=== PATIENT | female | born 1980 | race Caucasian/White ===

== ENCOUNTER 2020-08-26 11:43 | Inpatient (IN) | payer MEDICAID, OTHER ==
[~2020-08-26] VITALS: Ht 160 cm; Wt 63.6 kg
[2020-08-26] MEDS ORDERED: KETOROLAC 30 MG/1 ML IV ONE (12:30)
[2020-08-26] MEDS ORDERED: SODIUM CHLORIDE 0.9% 1,000ML IVBOLUS ONE (12:30)
[2020-08-26] MEDS ORDERED: KETOROLAC 30 MG/1 ML ONE (12:40)
--- NOTE | 2020-08-26 12:51 | NUR ---
pt in bed no distress, vss, ns running, admin pain meds
[2020-08-26 12:58] LABS: BASOPHILS % (AUTO) 1 % (0-1); EOSINOPHILS % (AUTO) 0 % (1-7); LYMPHOCYTES % (AUTO) 20 % (22-44); MEAN CORPUSCULAR HEMOGLOBIN 28.9 pg (27.0-34.8); MEAN CORPUSCULAR HGB CONC 34.3 g/dL (32.4-35.8); MEAN PLATELET VOLUME 7.2 fL (7.4-10.4); MONOCYTES % (AUTO) 9 % (2-9); NEUTROPHILS % (AUTO) 70 % (42-75); PLATELET COUNT 317 x10^3/uL (130-400); RED BLOOD COUNT 4.64 x10^6/uL (3.82-5.3); RED CELL DISTRIBUTION WIDTH 12.7 % (9.6-15.2)
[2020-08-26 13:00] LABS: MD NO
[2020-08-26 13:02] LABS: ALANINE AMINOTRANSFERASE 32 U/L (12-78); ALBUMIN 3.8 g/dL (3.4-5.0); ANION GAP 7 mmol/L (5-15); CALCIUM 9.1 mg/dL (8.5-10.1); CHLORIDE 106 mmol/L (98-107)
[2020-08-26 13:05] LABS: ALKALINE PHOSPHATASE 71 U/L (45-117); BILIRUBIN,TOTAL 0.8 mg/dL (0.2-1.0); TOTAL PROTEIN 7.7 g/dL (6.4-8.2)
--- NOTE | 2020-08-26 13:48 | NUR ---
PT IN BED, WAS RESTING, STATES STILL IN PAIN, VSS
[2020-08-26] MEDS ORDERED: AMPICILLIN/SULBACTAM 3 GM in SODIUM CHLORIDE 0.9% 100 ML IV ONE (14:30)
[2020-08-26] MEDS ORDERED: VANCOMYCIN PER PHARMACY MC PRN ×2 (14:30→15:30)
[2020-08-26] MEDS ORDERED: SERT50TA PO (14:57)
[2020-08-26] MEDS ORDERED: VANCOMYCIN 1,600 MG in SODIUM CHLORIDE 0.9% 250 ML IV ONE (15:00)
--- NOTE | 2020-08-26 15:00 | NUR ---
pt sitting in bed, bf at bedside
--- NOTE | 2020-08-26 15:06 | NUR ---
ivab started, SPOKE WITH PROVIDER ABOUT BLOOD CULTURES, SIRS CRITERIA NOT MET NO CULTURES INDACATED
[2020-08-26] MEDS ORDERED: ENOXAPARIN 40 MG/0.4 ML SQ SCH (15:30)
[2020-08-26] MEDS ORDERED: POLYETHYLENE GLYCOL 17 GM PACKET PO PRN (15:30)
[2020-08-26] MEDS ORDERED: ACETAMINOPHEN 325 MG TABLET PO PRN (15:30)
[2020-08-26] MEDS ORDERED: SENNA/DOCUSATE TABLET PO PRN (15:30)
[2020-08-26] MEDS ORDERED: ONDANSETRON 2MG/ML, 2ML IVPush PRN (15:30)
[2020-08-26] MEDS ORDERED: ONDANSETRON ODT 4 MG PO PRN (15:30)
[2020-08-26] MEDS ORDERED: IBUPROFEN 600 MG TABLET PO PRN (15:30)
[2020-08-26 15:52] LABS: HCT (SEDRATE) 37.5 % (34.6-47.8)
[2020-08-26] MEDS ORDERED: PHARMACOKINETIC MONITORING MC PRN (16:00)
[2020-08-26] MEDS ORDERED: PHARMACOKINETIC CONSULTATION MC ONE (16:00)
--- NOTE | 2020-08-26 16:10 | NUR ---
BREAK RN: PT UP TO ROOM, REPORT WAS GIVEN BY CARIDAD MAE
[2020-08-26 16:50] VITALS: BP 109/71
[2020-08-26] MEDS ORDERED: AMPICILLIN/SULBACTAM 3 GM in SODIUM CHLORIDE 0.9% 100 ML IV SCH (20:30)
[2020-08-26] MEDS ORDERED: SERTRALINE 50MG TABLET PO SCH (21:00)
[2020-08-27] MEDS ORDERED: VANCOMYCIN 1,300 MG in SODIUM CHLORIDE 0.9% 250 ML IV SCH (05:00)
== END 2020-08-26 19:00 | disposition left against medical advice (07) | DRG 603 ==
LOC: ED 13:11 → EDIP 15:14 → 3N 16:10
PROVIDERS: ADMIT Family Medicine; ATTEND Family Medicine
DX: L03.113 Cellulitis of right upper limb (principal); L02.511 Cutaneous abscess of right hand; F17.200 Nicotine dependence, unspecified, uncomplicated; R60.9 Edema, unspecified; F41.1 Generalized anxiety disorder; V89.2XXA Person injured in unspecified motor-vehicle accident, traffic, initial encounter
CPT/HCPCS: 36415; 80053; 83036; 85025; 85651; 86140; 87040; 87070; 87077; 87186; 87205; 87806; 93005; 96374; 96375; 99285; G0378; J0295; J1885; G0475; J7030

== ENCOUNTER 2020-08-28 15:09 | Inpatient (IN) | payer MEDICAID ==
[~2020-08-28] VITALS: Ht 160 cm; Wt 68.5 kg
[~2020-08-28 15:09] MED LIST: SERT50TA PO
[2020-08-28] MEDS ORDERED: KETOROLAC 30 MG/1 ML ONE (15:51)
[2020-08-28] MEDS ORDERED: KETOROLAC 30 MG/1 ML IVPush ONE (16:00)
[2020-08-28] MEDS ORDERED: AMPICILLIN/SULBACTAM 3 GM in SODIUM CHLORIDE 0.9% 100 ML IV ONE (16:00)
[2020-08-28] MEDS ORDERED: SODIUM CHLORIDE FLUSH 10ML SYR IVF ONE (16:00)
[2020-08-28] MEDS ORDERED: BUPR-86 PO (16:03)
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
[2020-08-28 16:44] LABS: BASOPHILS % (AUTO) 0 % (0-1); EOSINOPHILS % (AUTO) 0 % (1-7); LYMPHOCYTES % (AUTO) 17 % (22-44); MEAN CORPUSCULAR HEMOGLOBIN 28.7 pg (27.0-34.8); MEAN CORPUSCULAR HGB CONC 34.5 g/dL (32.4-35.8); MEAN PLATELET VOLUME 7.2 fL (7.4-10.4); MONOCYTES % (AUTO) 7 % (2-9); NEUTROPHILS % (AUTO) 76 % (42-75); PLATELET COUNT 393 x10^3/uL (130-400); RED BLOOD COUNT 4.42 x10^6/uL (3.82-5.3); RED CELL DISTRIBUTION WIDTH 12.4 % (9.6-15.2)
[2020-08-28 16:46] LABS: MD NO
--- NOTE | 2020-08-28 16:51 | NUR ---
Pt ambulatory to bathroom with SBA from this RN. Pt provided privacy. Pt able to provide urine sample. Specimen collected, labeled at bedside, sent to lab. Pt resting in bed, denies other needs.
[2020-08-28 16:54] LABS: ALANINE AMINOTRANSFERASE 25 U/L (12-78); ALBUMIN 3.3 g/dL (3.4-5.0); ANION GAP 3 mmol/L (5-15); CHLORIDE 111 mmol/L (98-107); CREATININE 0.72 mg/dL (0.55-1.02)
[2020-08-28 16:56] LABS: ALKALINE PHOSPHATASE 59 U/L (45-117); BILIRUBIN,TOTAL 0.5 mg/dL (0.2-1.0); TOTAL PROTEIN 7.5 g/dL (6.4-8.2)
[2020-08-28 17:23] LABS: AMPHETAMINE SCREEN, URINE Negative (Negative); BARBITURATE SCREEN, URINE Negative (Negative); BENZODIAZEPINE SCREEN, URINE Positive (Negative); CANNABINOID SCREEN, URINE Positive (Negative); COCAINE SCREEN, URINE Negative (Negative); METHADONE SCREEN, URINE Negative (Negative); OPIATE SCREEN, URINE Positive (Negative)
--- NOTE | 2020-08-28 17:23 | NUR ---
Pt appears drowsy, arousable to this RN entering room. IVF initiated per MAR. Pt requesting additional pain medication.
[2020-08-28 17:24] LABS: MICROSCOPIC INDICATED
[2020-08-28] MEDS ORDERED: SODIUM CHLORIDE 0.9% 1,000ML IVBOLUS ONE (17:30)
--- NOTE | 2020-08-28 17:43 | NUR ---
Late entry: This RN gaby locked pt's IV before she went to the bathroom to provide urine sample. When pt returned to the bathroom her IV was unlocked.
--- NOTE | 2020-08-28 17:44 | NUR ---
Discussed pt condition and events with Dr. Damico and ER environmental services supervisor.
--- NOTE | 2020-08-28 18:36 | NUR ---
Late Entry: Security contacted to search pt belongings. Pt agreeable to this. Among pt belongings: needle, dirty metal spoon, pill bottle containing multiple different pills, and folding pocket knife. Knife labeled with pt sticker and taken to security for safekeeping. Pt gives consent for this RN to dispose of needle and spoon. Pill bottle taken to security for pill identification. Reciept from pharmacy for pills placed in chart. Pharmacist reports they will contact this RN with names and dosages of pills. Reported events to Dr. Damico.
[2020-08-28] MEDS: HEPARIN 5,000 UNITS/ML, 1ML SQ SCH (19:00)
[2020-08-28] MEDS ORDERED: BISACODYL 10 MG SUPP PR PRN (19:00)
[2020-08-28] MEDS ORDERED: VANCOMYCIN PER PHARMACY MC PRN (19:00)
[2020-08-28] MEDS ORDERED: POLYETHYLENE GLYCOL 17 GM PACKET PO PRN (19:00)
--- NOTE | 2020-08-28 19:07 | NUR ---
Pharmacy called, reports they were able to identify the following pills in the bottle found in the patient's belongings: Sertraline 100mg tab yellow Ketiapine 50mg tab white xanax 2mg tab green xanax 2mg tab blue 1/2 large white round tablet unable to be identified.
--- NOTE | 2020-08-28 19:27 | NUR ---
Report to Kavya MAE.
[2020-08-28] MEDS ORDERED: VANCOMYCIN 1,500 MG in SODIUM CHLORIDE 0.9% 250 ML IV ONE (19:30)
--- NOTE | 2020-08-28 19:36 | NUR ---
report given to juan MAE
[2020-08-28 20:37] VITALS: BP 134/93
[2020-08-28] MEDS ORDERED: PHARMACOKINETIC MONITORING MC PRN (21:00)
[2020-08-28] MEDS ORDERED: PHARMACOKINETIC CONSULTATION MC ONE (21:00)
[2020-08-28] MEDS: AMPICILLIN/SULBACTAM 3 GM in SODIUM CHLORIDE 0.9% 100 ML IV SCH (22:54)
[2020-08-28] MEDS: morphine SULFATE 10 MG/ML, 1ML IVPush PRN ×2 (22:54→23:32)
[2020-08-28] MEDS: SODIUM CHLORIDE FLUSH 10ML SYR IVF SCH (22:55)
[2020-08-29 01:22] VITALS: BP 113/70
[2020-08-29] MEDS: HEPARIN 5,000 UNITS/ML, 1ML SQ SCH ×3 (02:23→17:40)
[2020-08-29] MEDS: morphine SULFATE 10 MG/ML, 1ML IVPush PRN ×4 (03:52→21:26)
[2020-08-29] MEDS: AMPICILLIN/SULBACTAM 3 GM in SODIUM CHLORIDE 0.9% 100 ML IV SCH ×4 (04:24→22:53)
[2020-08-29 07:18] LABS: BASOPHILS % (AUTO) 1 % (0-1); EOSINOPHILS % (AUTO) 0 % (1-7); LYMPHOCYTES % (AUTO) 21 % (22-44); MEAN CORPUSCULAR HEMOGLOBIN 28.9 pg (27.0-34.8); MEAN CORPUSCULAR HGB CONC 34.6 g/dL (32.4-35.8); MEAN PLATELET VOLUME 7.2 fL (7.4-10.4); MONOCYTES % (AUTO) 11 % (2-9); NEUTROPHILS % (AUTO) 67 % (42-75); PLATELET COUNT 344 x10^3/uL (130-400); RED CELL DISTRIBUTION WIDTH 12.5 % (9.6-15.2)
[2020-08-29 07:22] LABS: ANION GAP 9 mmol/L (5-15); CALCIUM 8.5 mg/dL (8.5-10.1); CHLORIDE 111 mmol/L (98-107)
[2020-08-29 07:23] LABS: CREATININE 0.94 mg/dL (0.55-1.02); MD NO
[2020-08-29 07:45] VITALS: BP 112/66
[2020-08-29] MEDS: SENNA/DOCUSATE TABLET PO SCH (08:58)
[2020-08-29] MEDS: SERTRALINE 50MG TABLET PO SCH (08:58)
[2020-08-29] MEDS: SODIUM CHLORIDE FLUSH 10ML SYR IVF SCH ×2 (08:58→21:14)
[2020-08-29] MEDS: VANCOMYCIN 1,200 MG in SODIUM CHLORIDE 0.9% 250 ML IV SCH ×2 (08:59→21:13)
[2020-08-29] MEDS ORDERED: BUPROPION HCL 150 MG HOMEMEDPO SCH (09:00)
[2020-08-29] MEDS: BUPROPION SR 150 MG TABLET PO SCH (11:14)
[2020-08-29] MEDS: OXYcodone IR 5MG TABLET PO PRN ×2 (11:53→19:34)
[2020-08-29 13:21] LABS: HCT (SEDRATE) 37.7 % (34.6-47.8)
[2020-08-29 13:35] VITALS: BP 102/56
[2020-08-29 18:50] VITALS: BP 115/74
[2020-08-29] MEDS: ACETAMINOPHEN 325 MG TABLET PO PRN (19:44)
[2020-08-29] MEDS: ALPRazolam 1MG TAB PO SCH (22:51)
[2020-08-30 01:43] VITALS: BP 100/64
[2020-08-30] MEDS: HEPARIN 5,000 UNITS/ML, 1ML SQ SCH ×4 (03:00→23:29)
[2020-08-30] MEDS: morphine SULFATE 10 MG/ML, 1ML IVPush PRN ×5 (04:52→22:52)
[2020-08-30] MEDS: AMPICILLIN/SULBACTAM 3 GM in SODIUM CHLORIDE 0.9% 100 ML IV SCH ×4 (04:52→22:51)
[2020-08-30 07:40] VITALS: BP 116/69
[2020-08-30] MEDS ORDERED: LORazepam 2 MG/ML, 1ML IVPush ONE (08:00)
[2020-08-30] MEDS: BUPROPION SR 150 MG TABLET PO SCH (08:28)
[2020-08-30] MEDS: SENNA/DOCUSATE TABLET PO SCH (08:28)
[2020-08-30] MEDS: GABAPENTIN 300 MG CAPSULE PO SCH ×3 (08:28→20:50)
[2020-08-30] MEDS: SERTRALINE 50MG TABLET PO SCH (08:28)
[2020-08-30] MEDS: SODIUM CHLORIDE FLUSH 10ML SYR IVF SCH ×2 (09:00→20:50)
[2020-08-30] MEDS ORDERED: GADOTERATE 7.5 MMOL/15 ML VIAL ONE (09:01)
[2020-08-30] MEDS: VANCOMYCIN PMX 1GM/200ML 200 ML IVPB SCH ×2 (12:24→20:50)
[2020-08-30 13:00] VITALS: BP 102/65
[2020-08-30] MEDS: OXYcodone IR 5MG TABLET PO PRN ×2 (15:04→21:04)
[2020-08-30] MEDS: ONDANSETRON ODT 4 MG PO PRN (17:32)
[2020-08-30 19:16] VITALS: BP 100/63
[2020-08-30] MEDS: ALPRazolam 1MG TAB PO SCH (20:50)
[2020-08-31] MEDS: morphine SULFATE 10 MG/ML, 1ML IVPush PRN ×3 (02:24→10:01)
[2020-08-31 03:05] VITALS: BP 96/54
[2020-08-31] MEDS: AMPICILLIN/SULBACTAM 3 GM in SODIUM CHLORIDE 0.9% 100 ML IV SCH ×4 (04:35→23:21)
[2020-08-31 04:56] LABS: BASOPHILS % (AUTO) 1 % (0-1); EOSINOPHILS % (AUTO) 1 % (1-7); LYMPHOCYTES % (AUTO) 22 % (22-44); MEAN CORPUSCULAR HEMOGLOBIN 29.1 pg (27.0-34.8); MEAN CORPUSCULAR HGB CONC 34.6 g/dL (32.4-35.8); MEAN PLATELET VOLUME 7.4 fL (7.4-10.4); MONOCYTES % (AUTO) 11 % (2-9); NEUTROPHILS % (AUTO) 65 % (42-75); PLATELET COUNT 328 x10^3/uL (130-400); RED CELL DISTRIBUTION WIDTH 12.5 % (9.6-15.2)
[2020-08-31 05:03] LABS: ANION GAP 5 mmol/L (5-15); CALCIUM 7.8 mg/dL (8.5-10.1); CHLORIDE 111 mmol/L (98-107); CREATININE 0.64 mg/dL (0.55-1.02)
[2020-08-31 05:05] LABS: MD NO
[2020-08-31] MEDS: VANCOMYCIN PMX 1GM/200ML 200 ML IVPB SCH ×3 (05:12→21:48)
[2020-08-31 05:58] LABS: HCG UR SG 1.018 (1.003-1.030)
[2020-08-31] MEDS ORDERED: EPHEDRINE 50 MG/ML, 1ML IM PRN (07:00)
[2020-08-31] MEDS ORDERED: EPHEDRINE 50 MG/ML, 1ML IVPush PRN (07:00)
[2020-08-31] MEDS ORDERED: METHOCARBAMOL 1,000 MG in DEXTROSE 5% 100 ML IV PRN (07:00)
[2020-08-31] MEDS ORDERED: OXYcodone 5 MG/5 ML ORAL.SOL UDC PO PRN (07:00)
[2020-08-31] MEDS ORDERED: POTASSIUM CHLORIDE 20 MEQ TAB.ER.PRT PO ONE (07:00)
[2020-08-31] MEDS ORDERED: METOCLOPRAMIDE 5 MG/ML, 2ML IVPush PRN (07:00)
[2020-08-31] MEDS ORDERED: DIPHENHYDRAMINE 50 MG/ML, 1ML IVPush PRN (07:00)
[2020-08-31] MEDS ORDERED: HALOPERIDOL 5 MG/ML IV PRN (07:00)
[2020-08-31] MEDS ORDERED: KETOROLAC 30 MG/1 ML IVPush PRN (07:00)
[2020-08-31] MEDS ORDERED: hydrALAzine 20 MG/ML, 1ML IV PRN (07:00)
[2020-08-31] MEDS ORDERED: MIDAZOLAM 1 MG/ML, 2ML IV PRN (07:00)
[2020-08-31] MEDS ORDERED: FENTANYL PF 100 MCG/2ML IV PRN (07:00)
[2020-08-31] MEDS ORDERED: LORazepam 2 MG/ML, 1ML IVPush PRN (07:00)
[2020-08-31] MEDS ORDERED: ACETAMINOPHEN 325 MG TABLET PO PRN (07:00)
[2020-08-31] MEDS ORDERED: ONDANSETRON 2MG/ML, 2ML IVPush PRN (07:00)
[2020-08-31] MEDS ORDERED: HYDROcodone/APAP 7.5-325MG/15ML UDC PO PRN (07:00)
[2020-08-31] MEDS ORDERED: LABETALOL 5MG/ML, 20ML IV PRN (07:00)
[2020-08-31] MEDS ORDERED: ALBUTEROL SULFATE 2.5 MG/3 ML NPPB PRN (07:00)
[2020-08-31] MEDS ORDERED: cloniDINE/PF 100 MCG/ML, 10 ML ONE (07:05)
[2020-08-31] MEDS ORDERED: LIDOCAINE/PF 1%, 30ML ONE (07:05)
[2020-08-31] MEDS ORDERED: MAGNESIUM SULFATE 1 GM/2 ML ONE (07:05)
[2020-08-31] MEDS ORDERED: LABETALOL 5MG/ML, 20ML ONE (07:05)
[2020-08-31] MEDS ORDERED: PROPOFOL 10 MG/ML, 20ML ONE (07:12)
[2020-08-31] MEDS ORDERED: DEXAMETHASONE 4 MG/ML, 5ML ONE (07:12)
[2020-08-31] MEDS ORDERED: GLYCOPYRROLATE 0.2MG/1ML, 5ML ONE (07:12)
[2020-08-31] MEDS ORDERED: ROCURONIUM 10MG/ML,5ML ONE (07:12)
[2020-08-31] MEDS ORDERED: MIDAZOLAM 1 MG/ML, 5ML ONE (07:13)
[2020-08-31] MEDS ORDERED: FENTANYL PF 250 MCG/5ML ONE (07:13)
[2020-08-31] MEDS ORDERED: BUPIVACAINE/PF 0.5% ONE (07:15)
[2020-08-31] MEDS ORDERED: BACITRACIN 50,000 UNIT ONE (07:15)
[2020-08-31] MEDS ORDERED: EPINEPHRINE 1 MG/ML, 1ML ONE (07:15)
[2020-08-31] MEDS ORDERED: OXYcodone 5 MG/5 ML ORAL.SOL UDC ONE (08:12)
[2020-08-31] MEDS ORDERED: DIAZEPAM 5 MG/ML, 2ML ONE (08:12)
[2020-08-31] MEDS ORDERED: HYDROmorphone 1 MG/ML, 1ML INJ ONE (08:12)
[2020-08-31] MEDS: HYDROmorphone 1 MG/ML, 1ML INJ IVPush PRN ×2 (08:15→08:30)
[2020-08-31] MEDS: DIAZEPAM 5 MG/ML, 2ML IVPush PRN ×2 (08:15→08:45)
[2020-08-31] MEDS ORDERED: LORazepam 2 MG/ML, 1ML ONE (08:27)
[2020-08-31] MEDS ORDERED: KETOROLAC 30 MG/1 ML ONE (08:36)
[2020-08-31] MEDS: SODIUM CHLORIDE FLUSH 10ML SYR IVF SCH ×2 (09:00→20:03)
[2020-08-31] MEDS: SENNA/DOCUSATE TABLET PO SCH (09:00)
[2020-08-31] MEDS: BUPROPION SR 150 MG TABLET PO SCH (09:53)
[2020-08-31] MEDS: GABAPENTIN 300 MG CAPSULE PO SCH ×3 (09:53→21:49)
[2020-08-31] MEDS: SERTRALINE 50MG TABLET PO SCH (09:53)
[2020-08-31] MEDS: HEPARIN 5,000 UNITS/ML, 1ML SQ SCH ×3 (09:55→22:31)
[2020-08-31] MEDS: ONDANSETRON ODT 4 MG PO PRN ×2 (10:01→17:54)
[2020-08-31 12:44] VITALS: BP 105/66
[2020-08-31] MEDS: MORPHINE SULFATE 4 MG/ML, 1ML IVPush PRN ×3 (13:19→20:04)
[2020-08-31] MEDS: KETOROLAC 30 MG/1 ML IV PRN ×2 (14:47→21:48)
[2020-08-31] MEDS: OXYcodone IR 5MG TABLET PO PRN ×2 (14:47→21:48)
[2020-08-31] MEDS ORDERED: OXYcodone IR 5MG TABLET PO PRN (17:30)
[2020-08-31 19:55] VITALS: BP 114/74
[2020-08-31] MEDS: ALPRazolam 1MG TAB PO SCH (21:49)
[2020-09-01 00:34] VITALS: BP 110/68
[2020-09-01 04:31] VITALS: BP 102/68
[2020-09-01] MEDS: AMPICILLIN/SULBACTAM 3 GM in SODIUM CHLORIDE 0.9% 100 ML IV SCH (04:37)
[2020-09-01] MEDS: VANCOMYCIN PMX 1GM/200ML 200 ML IVPB SCH ×3 (05:58→22:58)
[2020-09-01 08:50] VITALS: BP 109/71
[2020-09-01] MEDS: SODIUM CHLORIDE FLUSH 10ML SYR IVF SCH ×2 (09:00→22:00)
[2020-09-01] MEDS: SENNA/DOCUSATE TABLET PO SCH (09:00)
[2020-09-01] MEDS: OXYcodone IR 5MG TABLET PO PRN ×3 (09:09→21:59)
[2020-09-01] MEDS: ACETAMINOPHEN 325 MG TABLET PO PRN ×2 (09:10→15:00)
[2020-09-01] MEDS: ONDANSETRON ODT 4 MG PO PRN ×2 (09:10→17:12)
[2020-09-01] MEDS: SERTRALINE 50MG TABLET PO SCH (09:10)
[2020-09-01] MEDS: GABAPENTIN 300 MG CAPSULE PO SCH ×3 (09:11→22:00)
[2020-09-01] MEDS: BUPROPION SR 150 MG TABLET PO SCH (09:11)
[2020-09-01] MEDS: KETOROLAC 30 MG/1 ML IV PRN ×3 (09:18→22:00)
[2020-09-01] MEDS: HEPARIN 5,000 UNITS/ML, 1ML SQ SCH ×2 (11:00→17:13)
[2020-09-01] MEDS: CEFTRIAXONE PMX 2GM/50ML 50 ML IVPB SCH (11:18)
[2020-09-01] MEDS: MORPHINE SULFATE 4 MG/ML, 1ML IVPush PRN ×2 (11:23→16:07)
[2020-09-01 14:45] VITALS: BP 127/89
[2020-09-01 19:58] VITALS: BP 137/84
[2020-09-01] MEDS: ALPRazolam 1MG TAB PO SCH (21:59)
[2020-09-02 02:37] VITALS: BP 123/81
[2020-09-02] MEDS: HEPARIN 5,000 UNITS/ML, 1ML SQ SCH ×3 (03:00→19:00)
[2020-09-02 04:44] LABS: BASOPHILS % (AUTO) 1 % (0-1); EOSINOPHILS % (AUTO) 1 % (1-7); LYMPHOCYTES % (AUTO) 31 % (22-44); MEAN CORPUSCULAR HEMOGLOBIN 28.4 pg (27.0-34.8); MEAN CORPUSCULAR HGB CONC 33.8 g/dL (32.4-35.8); MEAN PLATELET VOLUME 7.6 fL (7.4-10.4); MONOCYTES % (AUTO) 7 % (2-9); NEUTROPHILS % (AUTO) 60 % (42-75); PLATELET COUNT 353 x10^3/uL (130-400); RED BLOOD COUNT 3.97 x10^6/uL (3.82-5.3)
[2020-09-02 04:49] LABS: MD NO
[2020-09-02 04:54] LABS: ALANINE AMINOTRANSFERASE 15 U/L (12-78); ALBUMIN 2.7 g/dL (3.4-5.0); ANION GAP 4 mmol/L (5-15); CALCIUM 8.2 mg/dL (8.5-10.1); CHLORIDE 110 mmol/L (98-107); CREATININE 0.77 mg/dL (0.55-1.02)
[2020-09-02 04:57] LABS: ALKALINE PHOSPHATASE 43 U/L (45-117); BILIRUBIN,TOTAL 0.3 mg/dL (0.2-1.0)
[2020-09-02] MEDS: VANCOMYCIN PMX 1GM/200ML 200 ML IVPB SCH (07:03)
[2020-09-02 07:44] VITALS: BP 123/73
[2020-09-02] MEDS: SENNA/DOCUSATE TABLET PO SCH (09:00)
[2020-09-02] MEDS: GABAPENTIN 300 MG CAPSULE PO SCH ×3 (09:55→19:58)
[2020-09-02] MEDS: ONDANSETRON ODT 4 MG PO PRN ×2 (09:55→19:57)
[2020-09-02] MEDS: SERTRALINE 50MG TABLET PO SCH (09:55)
[2020-09-02] MEDS: MORPHINE SULFATE 4 MG/ML, 1ML IVPush PRN ×3 (09:56→18:05)
[2020-09-02] MEDS: SODIUM CHLORIDE FLUSH 10ML SYR IVF SCH ×2 (09:58→19:58)
[2020-09-02] MEDS: BUPROPION SR 150 MG TABLET PO SCH (09:59)
[2020-09-02] MEDS: CEFTRIAXONE PMX 2GM/50ML 50 ML IVPB SCH (11:19)
[2020-09-02] MEDS: KETOROLAC 30 MG/1 ML IV PRN (11:19)
[2020-09-02] MEDS: ACETAMINOPHEN 325 MG TABLET PO PRN (11:20)
[2020-09-02] MEDS: OXYcodone IR 5MG TABLET PO PRN ×2 (11:25→19:58)
[2020-09-02 12:29] VITALS: BP 111/72
[2020-09-02] MEDS: ALPRazolam 1MG TAB PO SCH (19:58)
[2020-09-02 20:03] VITALS: BP 128/85
[2020-09-02] MEDS: VANCOMYCIN 1,500 MG in SODIUM CHLORIDE 0.9% 250 ML IV SCH (21:14)
[2020-09-03] MEDS: OXYcodone IR 5MG TABLET PO PRN ×2 (02:08→09:35)
[2020-09-03 02:11] VITALS: BP 104/69
[2020-09-03] MEDS: HEPARIN 5,000 UNITS/ML, 1ML SQ SCH ×2 (03:00→11:00)
[2020-09-03 09:00] VITALS: BP_SYST 108; BP_SYST 130; BP_DIAS 72; BP_DIAS 84
[2020-09-03] MEDS: SENNA/DOCUSATE TABLET PO SCH (09:00)
[2020-09-03] MEDS: BUPROPION SR 150 MG TABLET PO SCH (09:34)
[2020-09-03] MEDS: GABAPENTIN 300 MG CAPSULE PO SCH (09:34)
[2020-09-03] MEDS: ONDANSETRON ODT 4 MG PO PRN (09:35)
[2020-09-03] MEDS: SERTRALINE 50MG TABLET PO SCH (09:35)
[2020-09-03] MEDS: SODIUM CHLORIDE FLUSH 10ML SYR IVF SCH (09:36)
[2020-09-03] MEDS ORDERED: AMOX1TAB64 PO (11:11)
[2020-09-03] MEDS ORDERED: OXYC5TAB98 PO (11:11)
[2020-09-03] MEDS ORDERED: GABA300C PO (11:11)
[2020-09-03] MEDS: VANCOMYCIN 1,500 MG in SODIUM CHLORIDE 0.9% 250 ML IV SCH (11:24)
[2020-09-03 13:15] VITALS: BP 121/65
[2020-09-03] MEDS: CEFTRIAXONE PMX 2GM/50ML 50 ML IVPB SCH (13:26)
== END 2020-09-03 15:10 | disposition home or self-care (01) | DRG 574 ==
LOC: ED 16:32 → EDIP 19:32 → 4NE 20:07 → 4EST 08-29 13:26 → 4NE 08-29 13:26 → DCLOUNGE 09-03 15:01
PROVIDERS: ADMIT Internal Medicine; ATTEND Hospitalist
PROC: 02HV33Z Insertion of Infusion Device into Superior Vena Cava, Percutaneous Approach (ICD-10-PCS; principal; 2020-08-30)
PROC: B5181ZA Fluoroscopy of Superior Vena Cava using Low Osmolar Contrast, Guidance (ICD-10-PCS; 2020-08-30)
PROC: B548ZZA Ultrasonography of Superior Vena Cava, Guidance (ICD-10-PCS; 2020-08-30)
PROC: 0XBJ0ZZ Excision of Right Hand, Open Approach (ICD-10-PCS; 2020-08-31)
PROC: 0X9K0ZZ Drainage of Left Hand, Open Approach (ICD-10-PCS; 2020-08-31)
DX: L02.512 Cutaneous abscess of left hand (principal); L02.414 Cutaneous abscess of left upper limb; L03.113 Cellulitis of right upper limb; L02.511 Cutaneous abscess of right hand; F41.1 Generalized anxiety disorder; F32.9 Major depressive disorder, single episode, unspecified; F17.210 Nicotine dependence, cigarettes, uncomplicated; E87.6 Hypokalemia; B96.1 Klebsiella pneumoniae [K. pneumoniae] as the cause of diseases classified elsewhere; F11.10 Opioid abuse, uncomplicated; F41.9 Anxiety disorder, unspecified; Z66 Do not resuscitate; Z83.3 Family history of diabetes mellitus; Z79.899 Other long term (current) drug therapy; I95.9 Hypotension, unspecified
CPT/HCPCS: 36415; 84145; 87806; 96365; 96375; 99285; J3490; 36573; 80048; 80053; 80202; 80307; 81001; 81025; 83605; 85025; 85651; 86140; 87040; 87070; 87075; 87086; 87205; 87635; 93306; G0378; J0171; J0295; J0696; J1100; J1170; J1885; J2250; J2704; J3010; J3360; J3370; J3475; Q0162; A9575; C1751; G0475; J0735; J2060; J2270; J7030; J7050

== ENCOUNTER 2020-09-19 19:40 | Emergency (ER) | payer MEDICAID ==
[~2020-09-19] VITALS: Ht 160 cm; Wt 62.4 kg
[~2020-09-19 19:40] MED LIST changes: +AMOX1TAB64 PO; +BUPR-86 PO; +GABA300C PO; +OXYC5TAB98 PO
--- NOTE | 2020-09-19 19:48 | NUR ---
REGISTERED NURSE STEP DOWN: EKG DONE IN TRIAGE.
--- NOTE | 2020-09-19 20:13 | NUR ---
GROUND OPERATIONS SUPERVISOR: PT TO ROOM FROM LOBBY AT THIS TIME WITH CLOTH CUTTER
[2020-09-19 22:00] VITALS: BP 134/75
== END 2020-09-19 22:02 | disposition home or self-care (01) ==
LOC: ED 20:26
DX: S06.0X0A Concussion without loss of consciousness, initial encounter (principal); F11.129 Opioid abuse with intoxication, unspecified; R00.0 Tachycardia, unspecified; F17.210 Nicotine dependence, cigarettes, uncomplicated; V89.2XXA Person injured in unspecified motor-vehicle accident, traffic, initial encounter; Y93.89 Activity, other specified; Y92.89 Other specified places as the place of occurrence of the external cause; Y99.8 Other external cause status
CPT/HCPCS: 93005; 99283; 99406